=== PATIENT | female | born 1995 | race Two or more races ===

== ENCOUNTER 2020-02-24 02:02 | Emergency (ER) | payer SELFPAY ==
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
[2020-02-24] MEDS ORDERED: Diphtheria,Pertussis(Acell),Tetanus Vaccine 0.5 ML Syringe IM ONE (02:18)
[2020-02-24] MEDS ORDERED: Lidocaine 1% 20 ML MDV INJECT ONE (02:19)
[2020-02-24] MEDS ORDERED: Bupivacaine 0.5% 10 ML SDV INJECT ONE (02:22)
[2020-02-24] MEDS ORDERED: Bupivacaine 0.5% 10 ML SDV ONE (02:23)
== END 2020-02-24 04:00 | disposition left against medical advice (07) ==
LOC: MW.ED 02:02
DX: S61.213A Laceration without foreign body of left middle finger without damage to nail, initial encounter (principal); Z88.5 Allergy status to narcotic agent; W26.0XXA Contact with knife, initial encounter; Z23 Encounter for immunization
CPT/HCPCS: 12001; 90471; 90715; 99283; J3490; 64450; 99282; J2001

== ENCOUNTER 2020-02-25 13:37 | Emergency (ER) | payer SELFPAY ==
--- NOTE | 2020-02-25 14:03 | EDM.PDOC ---
ED HPI GENERAL MEDICAL PROBLEM - General Chief Complaint: Skin Complaint Stated Complaint: CUT ON FINGER Time Seen by Provider: 02/25/20 13:38 Source of Information: Reports: Patient History Limitations: Reports: No Limitations - History of Present Illness INITIAL COMMENTS - FREE TEXT/NARRATIVE: HISTORY AND PHYSICAL: History of present illness: Patient is a 24-year-old female who presents to the emergency room with complaints of a laceration across her left second, third, fourth distal fingertips. She was seen in our emergency room little over 24 hours ago and did receive sutures to the third distal digit. Evidently the patient eloped from the emergency department but was called and told she was not done receiving her stitches. She waited to return until now stating she was unsure if she still needed stitches or what discharge instructions she needed. Patient denies any fever, chills, headache, change in vision, syncope or near syncope. Denies any chest pain, back pain, shortness of breath or cough. Denies any GI or symptoms. Patient has been eating and drinking appropriately. Review of systems: As per history of present illness and below otherwise all systems reviewed and negative. Past medical history: As per history of present illness and as reviewed below otherwise noncontributory. Surgical history: As per history of present illness and as reviewed below otherwise noncontributory. Social history: See social history for further information Family history: As per history of present illness and as reviewed below otherwise noncontributory. Physical exam: General: Well-developed and well nourished 24-year-old female. Alert and appropriate for age. Nontoxic-appearing and in no acute distress. HEENT: Atraumatic, normocephalic, pupils equal and reactive bilaterally, negative for conjunctival pallor or scleral icterus, mucous membranes moist, TMs normal bilaterally, throat clear, neck supple, nontender, trachea midline. No drooling or trismus noted. No meningeal signs. No hot potato voice noted. Lungs: Clear to auscultation, breath sounds equal bilaterally, chest nontender. Heart: S1S2, regular rate and rhythm without overt murmur Abdomen: Soft, nondistended, nontender. Negative for masses or hepatosplenomegaly. Negative for costovertebral tenderness. Skin: Superficial lacerations noted to the distal tip of her second and fourth left digits, not involve the nailbed. Multiple stitches are noted to the pad of the left third digit. No surrounding erythema. Otherwise remaining skin is intact, warm, dry. No lesions or rashes noted. Extremities: Atraumatic, moves all extremities per self without difficulty or deficits, negative for cords or calf pain. Neurovascular unremarkable. Neuro: Awake, alert, oriented. Cranial nerves II through XII unremarkable. Cerebellum unremarkable. Motor and sensory unremarkable throughout. Exam nonfocal. Notes: Patient is out of the window for needing stitches at this time. The other 2 lacerated sites that were not sutured appeared to be well adhered at this time. Bacitracin was placed over the stitched finger as she says the stitches are irritating and have been "oozing". There is no surrounding erythema that would be concerning to me for requiring any type of antibiotic. We discussed signs and symptoms that would prompt her to return to the emergency room. Supportive care measures were reviewed and discussed. Voices understanding and is agreeable to plan of care. Denies any further questions or concerns at this time. Diagnostics: None Therapeutics: Bacitracin Prescription: None Impression: Laceration, subsequent encounter Plan: 1. Keep the area clean and dry. Continue to monitor for signs of infection. Sutures to be removed in 7-10 days. 2. Tylenol and/or ibuprofen as needed for pain management. 3. Please follow-up with your primary care provider in the next 1-2 days. Return to the ED as needed and as discussed. Definitive disposition and diagnosis as appropriate pending reevaluation and review of above. - Related Data Allergies Allergy/AdvReac Type Severity Reaction Status Date / Time acetaminophen [From Percocet] Allergy Hives Verified 02/24/20 02:07 oxycodone [From Percocet] Allergy Hives Verified 02/24/20 02:07 Home Meds: Home Meds . 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 Musculoskeletal History: Reports: None Neurological History: Reports: None Psychiatric History: Reports: None Endocrine/Metabolic History: Reports: None Insulin Pump Model and Front Desk Worker: None Hematologic History: Reports: None Immunologic History: Reports: None Oncologic (Cancer) History: Reports: None Dermatologic History: Reports: None - Infectious Disease History Infectious Disease History: Reports: None - Past Surgical History Head Surgeries/Procedures: Reports: None Female Surgical History: Reports: None Social & Family History - Family History Family Medical History: Noncontributory - Caffeine Use Caffeine Use: Reports: Coffee ED ROS GENERAL - Review of Systems Review Of Systems: Comprehensive ROS is negative, except as noted in HPI. ED EXAM, SKIN/RASH Exam: See Below (See dictation) Course - Orders/Labs/Meds Meds: Medications Discontinued Medications Generic Name Dose Route Start Last Admin Trade Name Freq PRN Reason Stop Dose Admin Bacitracin 1 dose 02/25/20 14:04 Bacitracin Oint 1 Gm TOP 02/25/20 14:05 ONETIME ONE Departure - Departure Time of Disposition: 14:04 Disposition: Home, Self-Care 01 Clinical Impression: Laceration of left middle finger Qualifiers: Encounter type: subsequent encounter Damage to nail status: without damage Foreign body presence: without foreign body Qualified Code(s): S61.213D - Laceration without foreign body of left middle finger without damage to nail, subsequent encounter - Discharge Information Instructions: Laceration Care, Adult, [id number] Referrals: PCP,Not In Area [Primary Care Provider] - Forms: ED Department Discharge Additional Instructions: The following information is given to patients seen in the emergency department who are being discharged to home. This information is to outline your options for follow-up care. We provide all patients seen in our emergency department with a follow-up referral. The need for follow-up, as well as the timing and circumstances, are variable depending upon the specifics of your emergency department visit. If you don't have a primary care physician on staff, we will provide you with a referral. We always advise you to contact your personal physician following an emergency department visit to inform them of the circumstance of the visit and for follow-up with them and/or the need for any referrals to a consulting specialist. The emergency department will also refer you to a specialist when appropriate. This referral assures that you have the opportunity for follow-up care with a specialist. All of these measure are taken in an effort to provide you with optimal care, which includes your follow-up. Under all circumstances we always encourage you to contact your private physician who remains a resource for coordinating your care. When calling for follow-up care, please make the office aware that this follow-up is from your recent emergency room visit. If for any reason you are refused follow-up, please contact the [facility] Emergency Department at and asked to speak to the emergency department charge nurse. [facility] [address] [place] [address] [facility] [address] [place] [id number] 1. Keep the area clean and dry. Continue to monitor for signs of infection. Sutures to be removed in 7-10 days - this can be done in [place]. 2. Tylenol and/or ibuprofen as needed for pain management. 3. Please follow-up with your primary care provider in the next 1-2 days. Return to the ED as needed and as discussed.
[2020-02-25] MEDS ORDERED: Bacitracin Oint 1 GM U/D Packet TOP ONE (14:04)
== END 2020-02-25 14:38 | disposition home or self-care (01) ==
LOC: MW.ED 13:37
DX: S61.213A Laceration without foreign body of left middle finger without damage to nail, initial encounter (principal); Z88.5 Allergy status to narcotic agent; W26.0XXA Contact with knife, initial encounter
CPT/HCPCS: 99282